=== PATIENT | female | born 1990 | race Caucasian/White ===

== ENCOUNTER 2016-10-28 04:23 | Emergency (ER) | payer SELFPAY ==
[2016-10-28] MEDS ORDERED: HYDROcodone/Acetaminophen 5/325 mg Tablet ONE (04:59)
[2016-10-28] MEDS ORDERED: Adacel (T-DAP) 0.5 ML VIAL ONE (04:59)
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
[2016-10-28] MEDS ORDERED: Sodium Chloride Irrig Solution 250 ML BOT ONE (10:53)
== END 2016-10-28 05:12 | disposition home or self-care (01) ==
LOC: MADERS 04:23
DX: S01.01XA Laceration without foreign body of scalp, initial encounter (principal); W20.8XXA Other cause of strike by thrown, projected or falling object, initial encounter
CPT/HCPCS: 12002; 90471; 90715